=== PATIENT | male | born 1995 | race Caucasian/White ===

== ENCOUNTER 2022-09-14 15:01 | Emergency (ER) | payer MEDICAID, MEDICARE ==
[~2022-09-14] VITALS: Ht 182.9 cm; Wt 113.6 kg
[~2022-09-14 15:01] MED LIST: DIPH25CA83 PO; DIVA-81 PO; DIVA500T39 PO; FISH12002 PO; IBUP-1985 PO; LEVO25TA7 PO; MELA3TAB39 PO; RISP1TAB98 PO; SERT-434 PO; SERT25TA PO
[2022-09-14 15:05] VITALS: BP 142/80
== END 2022-09-14 16:14 ==
LOC: ER 15:02
DX: S00.01XA Abrasion of scalp, initial encounter (principal); F31.9 Bipolar disorder, unspecified; Z88.8 Allergy status to other drugs, medicaments and biological substances; Z87.891 Personal history of nicotine dependence; Y08.89XA Assault by other specified means, initial encounter; Y93.89 Activity, other specified; Y92.89 Other specified places as the place of occurrence of the external cause; Y99.8 Other external cause status
CPT/HCPCS: 99283